=== PATIENT | male | born 1975 | race Caucasian/White ===

== ENCOUNTER 2017-02-15 12:28 | Emergency (ER) | payer OTHER ==
[~2017-02-15] VITALS: Ht 175.3 cm; Wt 81.8 kg
[2017-02-15 12:59] LABS: BASO % 0.6 % (0.0-1.0); EOS % 1.2 % (0.0-3.0); IMMATURE GRANULOCYTE % 0.3 % (0-0); LYMPH # 1.1 10^3/uL (1.5-4.5); LYMPH % 33.5 % (24.0-44.0); MEAN CORPUSCULAR HEMOGLOBIN 29.4 pg (27.0-33.0); MEAN CORPUSCULAR HGB CONC 34.3 g/dl (32.0-36.5); MEAN CORPUSCULAR VOLUME 85.6 fl (80.0-96.0); MONO # 0.4 10^3/uL (0.0-0.8); MONO % 12.8 % (0.0-5.0); NEUTROPHILS # 1.7 10^3/uL (1.8-7.7); NEUTROPHILS % 51.6 % (36.0-66.0); PLATELET COUNT, AUTOMATED 254 10^3/uL (150-450); RED CELL DISTRIBUTION WIDTH 12.5 % (11.5-14.5); WHITE BLOOD COUNT 3.4 10^3/uL (4.0-10.0)
[2017-02-15] MEDS ORDERED: NS 1,000 ML IV ONE (13:00)
[2017-02-15] MEDS ORDERED: MORPHINE 2 MG/ML 1ML SYRINGE As Ordered ONE (13:09)
[2017-02-15] MEDS ORDERED: ONDANSETRON 4MG/2ML VIAL (J2405) As Ordered ONE (13:09)
--- NOTE | 2017-02-15 13:09 | REP ---
CT of the brain without IV contrast: There are no comparisons. There is no hemorrhage. There is no edema, mass effect or midline shift. The cortical stripe is unremarkable. Ventricles are normal size and midline. The visualized paranasal sinuses and mastoid air cells are clear. Impression: There is no hemorrhage, acute infarct or mass. Negative CT study of the brain. Signed by Govind Romero MD 02/15/2017 01:00 P
[2017-02-15 13:18] LABS: INR 1.01
[2017-02-15 13:22] LABS: ANION GAP 9 MEQ/L (8-16); BLOOD UREA NITROGEN 14 MG/DL (7-18); CALCIUM LEVEL 8.4 MG/DL (8.5-10.1); CARBON DIOXIDE LEVEL 26 MEQ/L (21-32); CHLORIDE LEVEL 105 MEQ/L (98-107); CREATININE FOR GFR 0.88 MG/DL (0.70-1.30); GLOMERULAR FILTRATION RATE > 60.0 (>60); GLUCOSE, FASTING 106 MG/DL (70-105); POTASSIUM SERUM 4.4 MEQ/L (3.5-5.1); SODIUM LEVEL 140 MEQ/L (136-145)
[2017-02-15] MEDS ORDERED: ISOVUE-370 76% 100ML VIAL (Q9967) As Ordered ONE (13:23)
[2017-02-15] MEDS ORDERED: MORPHINE 2 MG/ML 1ML SYRINGE IV ONE (13:30)
[2017-02-15] MEDS ORDERED: ONDANSETRON 4MG/2ML VIAL (J2405) IV ONE (13:30)
--- NOTE | 2017-02-15 13:38 | REP ---
Portable chest, 01:00 p.m., single PA view: There are no comparisons. The lung nicole are clear. The cardiac size is normal. The atiya, mediastinum, and bony thorax are unremarkable. Impression: Negative portable chest. Signed by Govind Romero MD 02/15/2017 01:29 P
--- NOTE | 2017-02-15 14:12 | REP ---
CT of the chest with IV contrast, CT pulmonary angiography: There are no comparison chest CT studies. There are no emboli in the pulmonary trunk or central pulmonary arteries. There are no emboli in the pulmonary lobe or segment branches. There are no infiltrates, effusions, masses or nodules. The lung nicole are clear. The thoracic aorta is unremarkable. Cardiac size is borderline enlarged. There is no pericardial effusion. The visualized upper abdominal contents are unremarkable. Impression: There are no pulmonary emboli. Cardiac size is borderline enlarged. Otherwise, negative CT of the chest. Signed by Govind Romero MD 02/15/2017 02:03 P
--- NOTE | 2017-02-15 15:00 | REP ---
Bilateral upper extremity deep vein duplex ultrasound: The deep veins demonstrate normal compression, normal Doppler color flow and normal Doppler waveforms with respiration and augmentation from the brachial veins to the jugular veins bilaterally. Impression: There is no deep vein thrombus on the right or the left. Signed by Govind Romero MD 02/15/2017 02:51 P
--- NOTE | 2017-02-15 17:20 | REPUSA ---
CLINICAL HISTORY: BUE WEAKNESS, FATIGUE H/A NKI, BLURRY VISION, TECHNIQUE: Three dimensional rkbk-jl-mwmmat angiography is performed of the [place]. The alexy dy was performed without IV contrast agent. FINDINGS: The supraclinoid portions of the internal carotid arteries are of normal shape. The normal bifurcation is seen. The middle cerebral arteries are unremarkable in appearance. The posterior circu lation is visualized and shows no evidence of occlusion or aneurysm formation. The basilar tip is see n and shows no aneurysm formation. There is no evidence of beading to suggest vasculitis. IMPRESSION: MRA of the [place] is within normal limits. Thank you for your kind referral of this patient.
--- NOTE | 2017-02-15 17:20 | REPUSA ---
CLINICAL HISTORY: BUE WEAKNESS, FATIGUE H/A TECHNIQUE: MRI of the brain was performed without administration of intravenous contrast material. T1 spine echo, T2 fast spin echo, DWI and FLAIR sequences were obtained in sagittal, axial and coronal planes. FINDINGS: The sella and parasellar regions are unremarkable in appearance. The corpus callosum and cerebellar t onsils are of normal configuration and position. There are no intra or extra-axial collections. There is no mass effect or midline shift. There is no evidence of hematoma formation. There is no hydrocep halus. There is no evidence of restricted diffusion. The brain stem shows no mass effects, infarcts or hemorrhage. There are no cerebellopontine tumors. T he acoustic nerves are symmetrical. No cerebellar intra-axial pathology delineated. The fourth ventri vickie and aqueduct are normal. No abnormalities of the optic nerves are identified. There is no evidenc e of atrophic or degenerative changes. No dural or subdural masses or collections are detected. The visualized arterial structures demonstrate normal appearing flow voids. The VII and VIII nerve bu ndles are visualized and are unremarkable in appearance. Multiple foci of T2/FLAIR hyperintensity are noted in the bilateral periventricular and subcortical w lawson matter. The foci are nonspecific, however early demyelinating disease, vasculitis or migraine h eadaches may have this presentation. Clinical correlation and follow-up in six months is recommended. IMPRESSION: Nonspecific foci of T2/FLAIR hyperintensity in the periventricular and subcortical white matter as de scribed and could be related to demyelinating disease, vasculitis or migraine headaches. Clinical correlation and follow-up with contrast enhanced study in six months is recommended. Thank you for your kind referral of this patient.
[2017-02-15 19:33] VITALS: BP 117/71
--- NOTE | 2017-02-15 19:39 | ECGEPIP ---
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
--- NOTE | 2017-02-15 19:50 | ECGEPIP ---
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
--- NOTE | 2017-02-15 20:00 | ED PDOC ---
Post-Departure Follow-Up dr anthony and dr velasquez faxed formal report of mri/mra brain for fu David Mitchell MD Feb 15, 2017 20:00
== END 2017-02-15 19:42 | disposition home or self-care (01) ==
LOC: M ED 12:28
DX: R20.2 Paresthesia of skin (principal); R51 Headache; R07.9 Chest pain, unspecified; R42 Dizziness and giddiness; M19.90 Unspecified osteoarthritis, unspecified site
CPT/HCPCS: 70450; 70544; 70551; 71010; 71275; 80048; 82550; 82553; 83605; 85025; 85610; 85730; 86850; 86900; 86901; 93005; 93041; 93970; 94760; 96361; 96374; 96375; 99285; J2405; Q9967

== ENCOUNTER → 2018-03-08 | Outpatient (REF) | payer OTHER ==
[2018-03-08 13:26] LABS: BASO % 0.6 % (0.0-1.0); EOS % 0.8 % (0.0-3.0); LYMPH # 1.2 10^3/uL (1.5-4.5); LYMPH % 23.3 % (24.0-44.0); MEAN CORPUSCULAR HEMOGLOBIN 29.3 pg (27.0-33.0); MEAN CORPUSCULAR HGB CONC 34.8 g/dl (32.0-36.5); MEAN CORPUSCULAR VOLUME 84.2 fl (80.0-96.0); MONO # 0.5 10^3/uL (0.0-0.8); MONO % 9.6 % (0.0-5.0); NEUTROPHILS # 3.4 10^3/uL (1.8-7.7); NEUTROPHILS % 65.5 % (36.0-66.0); PLATELET COUNT, AUTOMATED 250 10^3/uL (150-450); RED BLOOD COUNT 5.46 10^6/uL (4.30-6.10); WHITE BLOOD COUNT 5.1 10^3/uL (4.0-10.0)
[2018-03-08 13:53] LABS: ALBUMIN 4.1 GM/DL (3.2-5.2); ALT/SGPT 47 U/L (12-78); BILIRUBIN,TOTAL 0.6 MG/DL (0.2-1.0); BLOOD UREA NITROGEN 14 MG/DL (7-18); CALCIUM LEVEL 8.8 MG/DL (8.5-10.1); CARBON DIOXIDE LEVEL 26 MEQ/L (21-32); CHLORIDE LEVEL 104 MEQ/L (98-107); CREATININE FOR GFR 0.94 MG/DL (0.70-1.30); GLOMERULAR FILTRATION RATE > 60.0 (>60); GLUCOSE, FASTING 80 MG/DL (70-100); POTASSIUM SERUM 4.1 MEQ/L (3.5-5.1); RHEUMATOID FACTOR QUANT < 10.0 IU/ML (<15.0); SODIUM LEVEL 139 MEQ/L (136-145); TOTAL PROTEIN 7.2 GM/DL (6.4-8.2); VITAMIN B12 LEVEL 384 PG/ML
[2018-03-08 14:00] LABS: ERYTHROCYTE SEDIMENTATION RATE 1 mm/hr (0-15)
[2018-03-08 14:36] LABS: HEMOGLOBIN A1c 5.6 %
[2018-03-09 10:59] LABS: DRVV SCREEN 38.2 SEC
[2018-03-09 11:07] LABS: PTT LUPUS TYPE ANTICOAG SCREEN 0.9 (0-1.2)
[2018-03-09 13:05] LABS: ALBUMIN % 66.7 % (55.8-66.1); ALPHA-1-GLOBULINS 0.22 GM/DL (0.17-0.41); ALPHA-2-GLOBULINS 0.51 GM/DL (0.42-0.99); ALPHA-2-GLOBULINS % 7.1 % (7.1-11.8); BETA-1-GLOBULINS 0.37 GM/DL (0.28-0.60); BETA-1-GLOBULINS % 5.1 % (4.7-7.2); BETA-2-GLOBULINS 0.32 GM/DL (0.19-0.55); BETA-2-GLOBULINS % 4.5 % (3.2-6.5); GAMMA GLOBULIN % 13.6 % (11.1-18.8); GAMMA GLOBULINS 0.98 GM/DL (0.65-1.58)
[2018-03-13 18:21] LABS: ANCA-ATYPICAL <1:20 titer (Neg:<1:20); ANTI DOUBLE STRAND-DNA AB <1 IU/mL (0-9); ANTINUCLEAR ANTIBODIES DIRECT Negative (Negative); CERULOPLASMIN 18.9 mg/dL (16.0-31.0); COPPER PLASMA 89 ug/dL (72-166); CYTOPLASMIC NEUTROP AB ANCA-C <1:20 titer (Neg:<1:20); LEAD BLOOD ADULT 1 ug/dL (0-4); MERCURY LEVEL None Detected ug/L (0.0-14.9); PERINUCLEAR AB ANCA-P <1:20 titer (Neg:<1:20); SJOGREN'S ANTI SS-A <0.2 AI (0.0-0.9); SJOGREN'S ANTI SS-B <0.2 AI (0.0-0.9); VITAMIN B1 LEVEL WHOLE BLOOD 141.8 nmol/L (66.5-200.0); VITAMIN B6,PYRIDOXAL PHOSPHATE 13.5 ug/L (5.3-46.7); VITAMIN E(ALPHA TOCOPHEROL) 10.3 mg/L (7.0-25.1); VITAMIN E(GAMMA TOCOPHEROL) 1.6 mg/L (0.5-5.5)
== END ==
LOC: M LABNEURO 11:42
PROVIDERS: ATTEND Psychiatry & Neurology Neurology
DX: G62.9 Polyneuropathy, unspecified (principal)

== ENCOUNTER → 2022-05-23 | Outpatient (CLI) | payer MEDICAID, OTHER ==
[~2022-05-23] MED LIST: HOLTER MONITOR XX
== END ==
LOC: M EKG 07:51
PROVIDERS: ATTEND Emergency Medicine
DX: R00.2 Palpitations (principal)

== ENCOUNTER 2023-05-06 11:48 | Day surgery (SDC) | payer OTHER ==
[~2023-05-06] VITALS: Ht 172.7 cm; Wt 79.6 kg
[~2023-05-06 11:48] MED LIST changes: +LIDOCAINE 2% 100MG/5ML SDV (FOR ANES.) As Ordered ONE; +NS 1,000 ML IV ONE; +propofoL 200 MG/20 ML VIAL As Ordered ONE
[2023-05-06 13:03] VITALS: TEMP 97.5
[2023-05-06 13:29] VITALS: BP 114/68; O2SAT 99
== END 2023-05-06 13:36 | disposition home or self-care (01) ==
LOC: M OPP 11:48
PROVIDERS: ATTEND Surgery
DX: Z12.11 Encounter for screening for malignant neoplasm of colon (principal); Z12.12 Encounter for screening for malignant neoplasm of rectum

== ENCOUNTER → 2024-03-30 | Outpatient (REF) | payer OTHER ==
[~2024-03-30] MED LIST changes: -LIDOCAINE 2% 100MG/5ML SDV (FOR ANES.) As Ordered ONE; -NS 1,000 ML IV ONE; -propofoL 200 MG/20 ML VIAL As Ordered ONE
== END ==
LOC: M SFHCDERM 12:29
PROVIDERS: ATTEND Physician Assistant
DX: D48.9 Neoplasm of uncertain behavior, unspecified (principal)